=== PATIENT | male | born 1945 | race Caucasian/White ===

== ENCOUNTER 2017-04-09 09:30 | Observation (INO) | payer MEDICARE ==
[2017-04-09] VITALS (7 sets, daily range): BP systolic 96–130; BP diastolic 46–70; PULSE 67–80; RESP 14–17; O2SAT 95–99
[~2017-04-09] VITALS: Ht 165.1 cm; Wt 78.2 kg
[~2017-04-09 09:30] MED LIST: ASP81TEC PO; ATOR80TA PO; BENA40TA60 PO; COR625 PO; FURO40TA PO; POTA8CAP10 PO; PROT40T PO; SPIR25TA17 PO
--- NOTE | 2017-04-09 09:49 | ED.REPORT ---
HPI-Rash / Abscess Date of Service Apr 09, 2017 ED Provider: Alireza Peacock MD The pt is a 71 y/o male with a hx of recurrent perirectal abscess, VT (in 1999 and 2001 with stent placement both times), DM Type II, HTN, and hypercholesterolemia who presents to the ED complaining of perirectal abscess, onset 3 days ago. He also reports constipation as BM is painful due to the abscess. He denies difficulty sleeping due to the pain, fever, nausea, vomiting and recent use of antibiotics. His sx today are similar to the several previous times he had a perirectal abscess that needed to be drained and surgically removed by Dr. Gregorio Junior. There are no other complaints at this time. He last ate about 4 hours ago. Nursing Notes Stated Complaint: BOIL ON BUTTOCK Chief Complaint: Skin Rash/Abscess Nursing Notes Reviewed: Yes (FOODSCROOGE, meds not reconciled) Allergies: Coded Allergies: amoxicillin (Verified Allergy, Severe, Agitation, 01/25/10) Scheduled Aspirin-Expunged Drug, Do Not Renew! (Aspirin EC-Expunged Drug, Do Not Renew!) 81 Mg Tablet 81 MG PO DAILY Stopped 12/08/10 Atorvastatin-Expunged Drug, Do Not Renew! (Atorvastatin-Expunged Drug, Do Not Renew!) 80 Mg Tablet 80 MG PO DAILY Benazepril-Expunged Drug, Do Not Renew! (Lotensin-Expunged Drug, Do Not Renew!) 40 Mg Tablet 40 MG PO DAILY Carvedilol-Expunged Drug, Do Not Renew! (Carvedilol-Expunged Drug, Do Not Renew! ) 6.25 Mg Tablet 6.25 MG PO BID Furosemide-Expunged Drug, Do Not Renew! (Lasix-Expunged Drug, Do Not Renew!) 40 Mg Tablet 40 MG PO BID Pantoprazole-Expunged Drug, Do Not Renew! (Protonix-Expunged Drug, Do Not Renew! ) 40 Mg Tablet.dr 40 MG PO DAILY Potassium Chl-Expunged Drug, Do Not Renew! (Potassium Chl-Expunged Drug, Do Not Renew!) 8 Meq Capsule.sa 8 MEQ PO DAILY Spironolactone-Expunged Drug, Do Not Renew! (Spironolactone-Expunged Drug, Do Not Renew!) 25 Mg Tablet 25 MG PO AM General Time Seen by MD: :46 Chief Complaint Abscess Hx Obtained From: Patient Arrived By: Walk-in Onset Occurred: 3 days ago Symptom Duration: Since onset Location: : Rectal area Quality: Painful Severity: Current: Mild Severity: Maximum: Mild Recent Healthcare: Recent doctor visit Similar Sx Previous: Yes Past Medical History Past Medical History Coronary artery disease, VT (in 1999 and 2001 with stent placement both times) History of recurrent perirectal abscess requiring drainage multiple times. Spontaneously draining abscess 4 times recently. GERD High cholesterol Past Surgical History Perirectal abscess incision and drainage Stent placement twice after VT Both shoulders Smoking History Former Smoker Social History Drug Use: Denies drug use Other Social History: Good social support Ambulatory Status Independent Review of Systems Reports: painful perirectal abscess Constitutional: Denies: Fever GI: Denies: Nausea, Vomiting Complete sys rev & neg: except as marked. Physical Exam Initial Vital Signs Vital Signs (First) Date Time Temp Pulse Resp B/P Pulse Ox O2 Delivery O2 Flow Rate FiO2 04/09/17 09:39 36.1 75 15 116/70 98 Room Air Initial VS: Reviewed, Vital signs normal Head / Eyes: Atraumatic, Normocephalic Neck: Supple, Non-tender, Full range of motion Respiratory: Breath sounds normal, Clear to auscultation, No respiratory distress Cardiovascular: Regular rate & rhythm, Heart sounds normal, Intact distal pulses Abdomen / GI: Soft, Non-tender Extremities: Vascular intact, Neuro intact, No swelling, No tenderness Neurologic: Alert, Oriented, Nonfocal General/Constitutional: Awake, Alert, No acute distress, Cooperative Skin: Atraumatic, Color NL, No rash, Warm, Dry, Intact, No swelling Interpretation & Diagnostics Lab Results Interpretation Result Diagram: 04/09/17 1025 04/09/17 1025 Test 04/09/17 10:25 White Blood Count 12.1th/mm3 (3.8-10.1) Red Blood Count 4.10mil/mm3 (4.40-5.80) Hemoglobin 13.7g/dL (13.8-17.2) Hematocrit 39.6% (41.0-50.0) Mean Corpuscular Volume 96.6fL (81-100) Mean Corpuscular Hemoglobin 33.4pg (27.0-35.0) Mean Corpuscular Hemoglobin Concent 34.6% (32.0-37.0) Red Cell Distribution Width 13.1% (12.3-15.4) Platelet Count 192bil/L (150-400) Neutrophils (%) (Auto) 72.0% (40-74) Lymphocytes (%) (Auto) 12.8% (14-46) Monocytes (%) (Auto) 12.5% (4-12) Eosinophils (%) (Auto) 2.3% (0-5) Basophils (%) (Auto) 0.2% (0-3) Sodium Level 137mEq/L (134-144) Potassium Level 5.1mEq/L (3.5-5.2) Chloride Level 97mEq/L (97-108) Carbon Dioxide Level 24mmol/L (18-29) Blood Urea Nitrogen 28mg/dL (8-27) Creatinine 1.31mg/dL (0.76-1.27) Estimat Glomerular Filtration Rate 57mL/min (>59) Glucose Level 133mg/dL (60-99) Calcium Level 9.0mg/dL (8.5-10.1) Total Bilirubin 0.5mg/dL (0.0-1.2) Aspartate Amino Transf (AST/SGOT) 14U/L (0-50) Alanine Aminotransferase (ALT/SGPT) 37U/L (0-44) Alkaline Phosphatase 73U/L (25-160) Total Protein 7.7g/dL (6.4-8.4) Albumin 4.1g/dL (3.4-5.0) Lab Results Interpretation: CBC mild leukocytosis CMP mild renal insufficiency CT Abd / Pelvis Interpretation IMPRESSION: 1. A 3.3 x 4.8 x 2.7 cm perianal/perirectal abscess. 2. Multiple hepatic hemangiomas. 3. Severe diverticulosis. No acute diverticulitis. 4. Hepatic steatosis. 5. Extensive atherosclerosis. There is mild fusiform dilation and distal aorta measuring 2.5 cm. A 5-year followup ultrasound is suggested. 6. Enlarged prostate. Dictated by: Susie Valentine M.D. on 04/09/2017 at 11:15 Approved by: Susie Valentine M.D. on 04/09/2017 at 11:27 Study type: Abdominal CT IV contrast Interpretation / Wet Read by: Interpret - Radiologist Re-Eval/Medical Decision Med Decision/Clinical Course This is a pleasant 71-year-old male presents complaining of a probable perirectal abscess. He reports he has had them intermittently over the years with a number of surgical incision and drainages, and occasional office drainage. He reports symptoms started on Thursday, been increasingly severe, and is a stoic individual and so when he started complaining of pain in his brought him in. He reports these are identical to symptoms he has had the perirectal abscess. He is undergone a workup reports no definitive etiology for why his develop recurrent abscesses has been identified. Nicely additional complaints. Please note that although the nurse's note indicates that he had coronary disease and a recent VT in March 2017, he states that incorrect he has coronary disease and 2 stents but his cardiac event was years ago. And stable recently. He denies fevers or chills. Exam he does not appear in any visible distress. Do not perirectal examination I do not appreciate ann fluctuance although there is rectal tenderness, there is nothing immediately amenable to incision and drainage at the bedside. Given his history, a CT imaging was pursued reveals a sizable deep abscess. This was reviewed with surgery and the plan is admission for OR drainage. The patient has a amoxicillin allergy, so is being covered with Cipro and Flagyl her current recommendations in the setting of an allergy. The patient was offered pain medicines, but is thus far declined them. Source of Hx: Old records Re-Evaluation/Progress #1: Time of Eval: 09:54 Re-Evaluation/Progress Note: Informed the pt that an abscess is not observed. A CT scan is required. The pt understands and agrees with the plan. All questions answeerd. Re-Evaluation/Progress #2: Time of Eval: 13:23 Re-Evaluation/Progress Note: Rechecked pt. Discussed lab results, imaging results,diagnosis and plan to admit. Pt understands and agrees with the plan for admission. All questions addressed. Consultation : Referral / Consult Name: Ezequiel Mcdowell MD Consulted With: Surgeon Call Returned at: 13:17 Chairman Ceo: Will see patient, Agrees with plan, Accepts admit Differential Diagnosis: Positive: Abscess, Perirectal abscess, Negative: Hand, foot, mouth disease, Herpes zoster (perirectal), Shingles, herpes zoster Counseled Regarding: Diagnosis, Lab results, Need for admission Discharge & Departure Impression: Primary Impression: Perirectal abscess Disposition: ADMITTED TO HOSPITAL Discharge Condition All VS Reviewed: Yes Condition: Stable Referrals: [facility] Scribe Attestation Portions of this note were transcribed by Maris Parra. I,, personally performed the history, physical exam and medical decision-making;I reviewed and confirmed the accuracy of the information in the transcribed note. Signed by Wan Jose. 04/09/17 copies to: [facility] Alireza Peacock MD Apr 09, 2017 09:49 Maris Parra Apr 09, 2017 10:02
[2017-04-09] MEDS ORDERED: metroNIDAZOLE Inj 1,000 MG in IV Premix 1 EACH IV ONE (10:05)
[2017-04-09] MEDS ORDERED: levoFLOXacin Inj 500 MG in IV Premix 1 EACH IV ONE (10:05)
[2017-04-09] MEDS ORDERED: Iohexol 300 mg/mL 30 mL Inj PO ONE (10:05)
[2017-04-09 10:36] LABS: BASOPHILS % (AUTO) 0.2 % (0-3); EOSINOPHILS % (AUTO) 2.3 % (0-5); MONOCYTES % (AUTO) 12.5 % (4-12); Mean Corpuscular Hemoglobin 33.4 pg (27.0-35.0); Mean Corpuscular Volume 96.6 fL (81-100); Platelet Count 192 bil/L (150-400)
--- NOTE | 2017-04-09 12:29 | DRSVH ---
PROCEDURE: CT ABDOMEN AND PELVIS WITH CONTRAST ([id number]) INDICATIONS: Rectal pain, h/o perirectal abscesses TECHNIQUE: After the administration of oral and intravenous contrast, 5 mm thick sections acquired from the diap hragms to the symphysis. 5 mm thick coronal and sagittal reformats were performed. For radiation do se reduction, the following was used: automated exposure control, adjustment of mA and/or kV accordi ng to patient size. COMPARISON: None. FINDINGS: Image quality: Excellent. ABDOMEN: Lung bases: Lung bases are clear. Heart size is normal. Tiny hiatal hernia. Solid organs: There is a 4.6 x 2.9 cm hypodense mass with peripheral nodular enhancement in the post erior segment of the right hepatic lobe, consistent with a hepatic hemangioma. A 3.3 cm hypodense mas s is present in the left hepatic lobe also demonstrates peripheral nodular enhancement consistent wit h a second hepatic hemangioma. There is a 1.1 cm enhancing subcapsular nodule in the anterior liver b etween the left and right hepatic lobe, most likely a small hemangioma. There is diffuse hepatic fatty infiltration. Liver and spleen are normal in size and enhancement. G allbladder is normal. Biliary system is non-dilated. Pancreas enhances normally. No adrenal nodule s. Kidneys are normal in size and enhancement, without hydronephrosis. Peritoneum and bowel: There is a 3.3 x 4.8 x 2.7 cm rim-enhancing fluid collection posterior to the rectum/anus at midline and the left posterior lateral of the anus, consistent with a perianal/perirec joyce abscess. There are numerous colonic diverticula, extensive molding the sigmoid colon. No evidence for acute di verticulitis. Stomach, small bowel, and colon loops are normal in caliber and wall thickness. The ap pendix is normal. No free fluid or air. Nodes and vessels: No retroperitoneal or mesenteric adenopathy. Aorta and inferior vena cava are no rmal in caliber. There is extensive atherosclerosis calcification. There is mild fusiform dilation o f the distal aorta measuring 2.5 cm. Miscellaneous: No ventral hernias. PELVIS: Genitourinary: Bladder wall thickness is normal. Prostate is enlarged. Miscellaneous: No inguinal adenopathy. Bilateral fat containing inguinal hernias are noted. Bones: No suspicious bony lesions. No vertebral body compression fractures. IMPRESSION: 1. A 3.3 x 4.8 x 2.7 cm perianal/perirectal abscess. 2. Multiple hepatic hemangiomas. 3. Severe diverticulosis. No acute diverticulitis. 4. Hepatic steatosis. 5. Extensive atherosclerosis. There is mild fusiform dilation and distal aorta measuring 2.5 cm. A 5- year followup ultrasound is suggested. 6. Enlarged prostate. Dictated by: Susie Valentine M.D. on 04/09/2017 at 11:15 Approved by: Susie Valentine M.D. on 04/09/2017 at 11:27
[2017-04-09] MEDS ORDERED: 0.9% Sodium Chloride 1,000 ML IV SCH (14:04)
[2017-04-09] MEDS ORDERED: Ondansetron 2 mg/mL 2 mL Inj IVPUSH PRN ×2 (14:05→15:05)
[2017-04-09] MEDS ORDERED: Alum-Mag Hydrox-Simeth 30 mL Suspension PO PRN (14:05)
[2017-04-09] MEDS ORDERED: MetoCLOpramide 5 mg/mL 2 mL Inj IVPUSH PRN (15:05)
[2017-04-09] MEDS ORDERED: Lactated Ringer's 500 ML IV PRN (15:05)
[2017-04-09] MEDS ORDERED: Phenylephrine 10,000 mCg/mL Inj IVPUSH PRN (15:05)
[2017-04-09] MEDS ORDERED: fentaNYL-PF 50 mCg/mL 2 mL Inj IVPUSH PRN (15:05)
[2017-04-09] MEDS ORDERED: Dexamethasone 4 mg/mL Inj IVPUSH PRN (15:05)
[2017-04-09] MEDS ORDERED: EPHEDrine Sulfate 50 mg/mL Inj IVPUSH PRN (15:05)
[2017-04-09] MEDS ORDERED: Lactated Ringer's 1,000 ML IV SCH (15:05)
[2017-04-09] MEDS ORDERED: HYDROmorphone 1 mg/mL Inj IVPUSH PRN (15:05)
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
[2017-04-09] MEDS ORDERED: Lactated Ringer's 1,000 ML IV ONE ×2 (15:15→16:22)
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
[2017-04-09] MEDS ORDERED: Bupivacaine-MPF 0.5% W/EPI 30 mL Inj INFILTRATE ONE (15:56)
--- NOTE | 2017-04-09 16:11 | PCM.SURGOP ---
Surgical Operative Report Date of Service: Apr 09, 2017 Pre Operative Diagnosis Recurrent horseshoe perirectal abscess Post Operative Diagnosis Same Procedure: Anal examination under anesthesia, incision and drainage of recurrent horseshoe perirectal abscess (complex, packed). Surgeon and Principal Technologist: Surgeon: Ezequiel Mcdowell MD Assistants: Greg Silvestre MD PGY-3 Indication for Procedure 70-year-old man with a history of a recurrent perirectal abscess, drained by Dr. Junior in 2001. He presented with several days of increasing pain and swelling around the anal canal. He underwent blood cell count of 12. CT scan of the abdomen and pelvis showed an approximate 4 cm abscess with horseshoe configuration posteriorly. He has never had colonoscopy. After discussion of risks and benefits, he agreed to proceed with incision and drainage of perirectal abscess. Findings: There was a horseshoe abscess. A fistula could not be identified. The anal canal was normal on anoscopy. Procedure Details After smooth induction of general anesthesia with an LMA, he was placed in the high lithotomy position, and was prepped and draped in wide sterile fashion. A procedural pause was performed according to the [facility]AP checklist, and all were found to be in agreement. The abscess cavity was accessed with an 18-gauge needle through his prior right posterior radial incision. Approximately 5 mL of pus was aspirated and sent for Gram stain and culture. His prior right posterior radial incision was reopened sharply. Dissection was carried through the superficial soft tissue until the abscess cavity was encountered and was drained. Loculations were broken up bluntly. A bivalve anal retractor was then inserted into the anal canal, and attempts were made to identify a fistula. There were no internal openings suggestive of a fistula. There were no particularly hypertrophic anal papillae. A fistula probe was inserted into the abscess cavity, and again attempts are made to identify a fistula tract, which was unsuccessful. The cavity was then irrigated and suctioned. A [place] drain was placed into both the right-sided and left-sided aspects of the horseshoe abscess, and secured to the skin with 2-0 nylon suture. Sterile dressings were applied. At the end the case all needle and sponge counts were correct 2. The patient was awakened from anesthesia without difficulty, and taken to the recovery room in satisfactory condition, having tolerated the procedure well. Complications There were no periprocedural complications identified. Surgical Specimen Removed: No Specimen sent to Pathology: Not applicable Anesthetic Plan: GA Grafts, Implants: None Output, Estimated Blood Loss: 10 Blood Administration during wright: No Drains: Pen Kaycee Catheters: None copies to: Omaira Farmer Joshua D MD Apr 09, 2017 16:11
[2017-04-09] MEDS ORDERED: Acetaminophen PO (16:22)
[2017-04-09] MEDS ORDERED: LEVO750T39 PO (16:22)
[2017-04-09] MEDS ORDERED: METR500T19 PO (16:22)
[2017-04-09] MEDS ORDERED: POLY17PO6 PO (16:22)
[2017-04-09] MEDS ORDERED: OXYC5TAB72 PO (16:22)
--- NOTE | 2017-04-09 16:25 | PCM.DISURG ---
Surgical Discharge Instruction Date of Service Apr 09, 2017 Dates of Hospitalization Date of Hospital Admission Apr 09, 2017 at 14:26 Providers Admitting Physician: Kathe Mcdowell DO Primary Care Physician: Omaira Farmer Attending Physician: Kathe Mcdowell DO Discharge Diagnosis Post Operative diagnosis Same Diet Discharge Diet: No restrictions Activity Discharge Activity-General: Activity as pain allows, No driving while taking narcotic Dressing and Incisional Care Hygiene: Other (Keep a clean pad in your underwear to absorb any drainage. Ok to shower and to take sitz baths. Keep the area clean and dry. ) Additional Instructions Discharge Instructions You have 2 drains in your abscess cavity called gilda drains. They are sutured in place but please call if they become dislodged. Complete 7 days of antibiotics We will see you back in clinic in 7 days. Please call at any time with questions or concerns. Follow Up Plan Follow Up Plan In 7 days in the general surgery clinic Call your provider for: Fever, Chills, Increasing wound pain Maxx Silvestre MD Apr 09, 2017 16:25
[2017-04-09] MEDS ORDERED: Ketamine 10 mg/mL 20 mL Inj ONE (17:07)
[2017-04-09] MEDS ORDERED: Ondansetron 2 mg/mL 2 mL Inj ONE (17:07)
[2017-04-09] MEDS ORDERED: fentaNYL-PF 50 mCg/mL 2 mL Inj ONE (17:07)
== END 2017-04-09 17:08 | disposition home or self-care (01) ==
LOC: SED 09:30 → OSC 14:26
PROVIDERS: ADMIT Family Medicine; ATTEND Student in an Organized Health Care Education/Training Program
PROC: 0D9P0ZZ Drainage of Rectum, Open Approach (ICD-10-PCS; principal; 2017-04-09 15:00)
DX: K61.1 Rectal abscess (principal); I25.10 Atherosclerotic heart disease of native coronary artery without angina pectoris; I25.2 Old myocardial infarction; E11.9 Type 2 diabetes mellitus without complications; K21.9 Gastro-esophageal reflux disease without esophagitis; I10 Essential (primary) hypertension; E78.00 Pure hypercholesterolemia, unspecified; Z79.82 Long term (current) use of aspirin; Z87.891 Personal history of nicotine dependence; Z88.1 Allergy status to other antibiotic agents